=== PATIENT | female | born 1995 | race Caucasian/White ===

== ENCOUNTER 2020-06-19 15:00 | Outpatient (CLI) | payer BC, MEDICAID ==
[~2020-06-19] VITALS: Ht 175.3 cm; Wt 83.6 kg
[2020-06-19 15:25] VITALS: BP 126/80
[2020-06-19] MEDS ORDERED: PREN1TAB10 PO (16:14)
== END 2020-06-19 16:28 | disposition home or self-care (01) ==
LOC: LDOP 15:00
PROVIDERS: ATTEND Obstetrics & Gynecology
DX: O42.913 Preterm premature rupture of membranes, unspecified as to length of time between rupture and onset of labor, third trimester (principal); Z3A.34 34 weeks gestation of pregnancy
CPT/HCPCS: 59025; 89060; Q0114

== ENCOUNTER 2020-06-21 03:09 | Inpatient (IN) | payer MEDICAID ==
[~2020-06-21] VITALS: Ht 175.3 cm; Wt 83.6 kg
[~2020-06-21 03:09] MED LIST: PREN1TAB10 PO
[2020-06-21] MEDS ORDERED: OXYTOCIN 30U/ 0.9% NaCL 500ML 500 ML ONE ×2 (03:24→08:47)
[2020-06-21] MEDS ORDERED: LIDOCAINE 1%, 20ML ONE (03:25)
[2020-06-21] MEDS ORDERED: MISOPROSTOL 200 MCG TABLET ONE (03:25)
[2020-06-21] MEDS ORDERED: OXYTOCIN 30U/ 0.9% NaCL 500ML 500 ML IV ONE (03:30)
[2020-06-21] MEDS ORDERED: TERBUTALINE 1 MG/ML, 1ML IVPush PRN (03:30)
[2020-06-21] MEDS ORDERED: SODIUM CHLORIDE FLUSH 10ML SYR IVF PRN (03:30)
[2020-06-21] MEDS ORDERED: LACTATED RINGERS 1,000 ML IV SCH ×2 (03:30→04:30)
[2020-06-21] MEDS ORDERED: FENTANYL PF 100 MCG/2ML IVPush PRN (03:30)
[2020-06-21] MEDS ORDERED: ALUMINUM/MAG/SIMETHICONE 30 ML UDC PO PRN (03:30)
[2020-06-21] MEDS ORDERED: TERBUTALINE 1 MG/ML, 1ML SQ PRN (03:30)
[2020-06-21] MEDS ORDERED: D5%-LACTATED RINGERS 1,000 ML IV SCH (03:30)
[2020-06-21] MEDS ORDERED: FENTANYL PF 100 MCG/2ML ONE (03:48)
[2020-06-21 03:51] LABS: BASOPHILS % (AUTO) 0 % (0-1); EOSINOPHILS % (AUTO) 1 % (1-7); LYMPHOCYTES % (AUTO) 21 % (22-44); MEAN CORPUSCULAR HEMOGLOBIN 31.7 pg (27.0-34.8); MEAN CORPUSCULAR HGB CONC 34.2 g/dL (32.4-35.8); MEAN PLATELET VOLUME 9.5 fL (7.4-10.4); MONOCYTES % (AUTO) 6 % (2-9); NEUTROPHILS % (AUTO) 71 % (42-75); PLATELET COUNT 122 x10^3/uL (130-400); RED BLOOD COUNT 4.06 x10^6/uL (3.82-5.3); RED CELL DISTRIBUTION WIDTH 13.2 % (9.6-15.2)
[2020-06-21 03:55] VITALS: BP 127/69
[2020-06-21 03:59] LABS: MD NO
[2020-06-21] MEDS ORDERED: BUPIVACAINE 0.25% ONE (04:25)
[2020-06-21] MEDS ORDERED: FENTANYL/BUPIV./NS/PF 250 ML EPIDCONT ONE (04:25)
[2020-06-21] MEDS ORDERED: EPHEDRINE 50 MG/ML, 1ML IVPush PRN (04:30)
[2020-06-21] MEDS ORDERED: FENTANYL/BUPIV./NS/PF 250 ML EPIDCONT SCH (04:30)
[2020-06-21] MEDS ORDERED: LACTATED RINGERS 1,000 ML IVBOLUS PRN (04:30)
[2020-06-21] MEDS ORDERED: NALOXONE 0.4 MG/ML, 1ML IVPush PRN (04:30)
[2020-06-21] MEDS ORDERED: ONDANSETRON 2MG/ML, 2ML ONE ×2 (05:21→16:42)
[2020-06-21] MEDS ORDERED: IBUPROFEN 600 MG TABLET ONE (08:47)
[2020-06-21] MEDS: OXYTOCIN 30U/ 0.9% NaCL 500ML 500 ML IV SCH ×13 (08:51→23:20)
[2020-06-21] MEDS: IBUPROFEN 600 MG TABLET PO PRN ×3 (08:51→21:15)
[2020-06-21] MEDS: PRENATAL VIT/IRON/FA 1 EACH TABLET PO SCH (09:00)
[2020-06-21] MEDS ORDERED: DOCUSATE 100 MG CAPSULE PO PRN (09:00)
[2020-06-21] MEDS ORDERED: MISOPROSTOL 200 MCG TABLET PR PRN (09:00)
[2020-06-21] MEDS ORDERED: SIMETHICONE 80 MG CHEW TAB PO PRN (09:00)
[2020-06-21 10:00] VITALS: BP 114/67
[2020-06-21 12:20] VITALS: BP 131/75
[2020-06-21] MEDS: OXYcodone IR 5MG TABLET PO PRN ×2 (14:46→21:15)
[2020-06-21 15:15] LABS: BASOPHILS % (AUTO) 0 % (0-1); EOSINOPHILS % (AUTO) 0 % (1-7); LYMPHOCYTES % (AUTO) 15 % (22-44); MEAN CORPUSCULAR HEMOGLOBIN 32.3 pg (27.0-34.8); MEAN PLATELET VOLUME 9.5 fL (7.4-10.4); MONOCYTES % (AUTO) 7 % (2-9); NEUTROPHILS % (AUTO) 77 % (42-75); PLATELET COUNT 98 x10^3/uL (130-400); RED BLOOD COUNT 3.47 x10^6/uL (3.82-5.3); RED CELL DISTRIBUTION WIDTH 13.3 % (9.6-15.2)
[2020-06-21 15:16] LABS: MD NO
[2020-06-21 16:00] VITALS: BP 120/63
[2020-06-21] MEDS ORDERED: ONDANSETRON 2MG/ML, 2ML IVPush PRN (17:00)
[2020-06-21 19:35] VITALS: BP 128/79
[2020-06-21] MEDS: ACETAMINOPHEN 325 MG TABLET PO PRN (19:49)
[2020-06-22 00:50] VITALS: BP 132/75
[2020-06-22] MEDS: ACETAMINOPHEN 325 MG TABLET PO PRN (02:14)
[2020-06-22] MEDS: OXYcodone IR 5MG TABLET PO PRN (02:14)
[2020-06-22 04:28] VITALS: BP 125/77
[2020-06-22] MEDS: OXYTOCIN 30U/ 0.9% NaCL 500ML 500 ML IV SCH (05:00)
[2020-06-22 07:30] VITALS: BP 132/78
[2020-06-22] MEDS: PRENATAL VIT/IRON/FA 1 EACH TABLET PO SCH (09:00)
== END 2020-06-22 10:36 | disposition home or self-care (01) | DRG 807 ==
LOC: LDOP 03:09 → LDIP 03:39 → 2NW 09:56
PROVIDERS: ADMIT Obstetrics & Gynecology; ATTEND Obstetrics & Gynecology
PROC: 10E0XZZ Delivery of Products of Conception, External Approach (ICD-10-PCS; principal; 2020-06-21)
PROC: 10907ZU Drainage of Amniotic Fluid, Diagnostic from Products of Conception, Via Natural or Artificial Opening (ICD-10-PCS; 2020-06-21)
PROC: 3E0R3BZ Introduction of Anesthetic Agent into Spinal Canal, Percutaneous Approach (ICD-10-PCS; 2020-06-21)
PROC: 00HU33Z Insertion of Infusion Device into Spinal Canal, Percutaneous Approach (ICD-10-PCS; 2020-06-21)
DX: O76 Abnormality in fetal heart rate and rhythm complicating labor and delivery (principal); Z37.0 Single live birth; Z20.822 Contact with and (suspected) exposure to COVID-19; Z3A.38 38 weeks gestation of pregnancy
CPT/HCPCS: 36415; 85025; 86592; 86850; 86900; 87635; G0378; J2405; J2590; J3010; J7120